=== PATIENT | male | born 1960 | race American Indian/Alaskan Native ===

== ENCOUNTER 2018-06-22 05:55 | Day surgery (SDC) | payer BC ==
[~2018-06-22 05:55] MED LIST: ANCEF/STERILE WATER 2 GM/20 ML 2 GM/20 ML SYRINGE IV NR; LACTATED RINGERS 1,000 ML IV SCH
[2018-06-22] MEDS ORDERED: ANCEF/STERILE WATER 2 GM/20 ML IV NR (06:24)
[2018-06-22] MEDS ORDERED: NACL BACTERIOSTATIC INFILTRATI ONE (06:44)
[2018-06-22] MEDS ORDERED: MARCAINE-EPI 0.5%-1:200,000 INFILTRATI ONE ×2 (06:47→08:42)
[2018-06-22] MEDS ORDERED: XYLOCAINE 1% 20 mL ONE (06:47)
[2018-06-22] MEDS ORDERED: FLAGYL 500 MG/100 ML 500 MG/100 ML BAG IV NR (07:00)
[2018-06-22] MEDS ORDERED: PEPCID IV NR (07:09)
[2018-06-22] MEDS ORDERED: XYLOCAINE MPF 2% ONE (07:26)
[2018-06-22] MEDS ORDERED: DILAUDID ONE (07:26)
[2018-06-22] MEDS ORDERED: ZEMURON IV ONE (07:26)
[2018-06-22] MEDS ORDERED: DIPRIVAN 10 MG/ML IV ONE ×2 (07:26→08:25)
[2018-06-22] MEDS ORDERED: NARCAN 0.4 MG/1 ML IV PRN (07:36)
[2018-06-22] MEDS ORDERED: DILAUDID IV PRN (07:36)
[2018-06-22] MEDS ORDERED: ZOFRAN IV PRN (07:36)
[2018-06-22] MEDS ORDERED: DEMEROL IV PRN (07:36)
[2018-06-22] MEDS ORDERED: SUBLIMAZE IV PRN (07:36)
[2018-06-22] MEDS ORDERED: VERSED IV NR (08:00)
--- NOTE | 2018-06-22 08:42 | Anesthesia Day of Surgery ---
Anesthesia Day of Surgery - Day of Surgery Patient Examined: Yes Patient H&P Reviewed: Yes Patient is NPO: Yes (799) Beta Blockers: No (n/a) Cardiac Clearance: No (n/a) Pulmonary Clearance: No (n/a)
--- NOTE | 2018-06-22 08:42 | Anesthesia Consultation ---
Anesthesia Consult and Med Hx Date of service: 06/22/18 - Airway Anesthetic Teeth Evaluation: Good ROM Head & Neck: Adequate Mental/Hyoid Distance: Adequate Mallampati Class: Class II Intubation Access Assessment: Probably Good - Pulmonary Exam CTA: Yes - Cardiac Exam Cardiac Exam: RRR - Pre-Operative Health Status ASA Pre-Surgery Classification: ASA3 Proposed Anesthetic Plan: General - Pulmonary Hx Smoking: No Hx Respiratory Symptoms: No Hx Sleep Apnea: Yes (RESOLVED WITH T&A SX) - Cardiovascular System Hx Hypertension: Yes (2018; took norvasc 5mg this morning) Hx Heart Attack/AMI: No Hx Cardia Arrhythmia: No - Central Nervous System Hx Neuromuscular Disorder: No Hx Psychiatric Problems: No - Endocrine Hx Renal Disease: No Hx Liver Disease: No Hx Insulin Dependent Diabetes: No Hx Non-Insulin Dependent Diabetes: No Hx Thyroid Disease: No - Other Systems Hx Alcohol Use: Yes (OCCA.) Hx Substance Use: No Hx Cancer: No Hx Obesity: Yes - Additional Comments Anesthesia Medical History Comments: No GAC, No FHAC
[2018-06-22] MEDS ORDERED: NACL 0.9% IR ONE ×2 (08:43→09:00)
[2018-06-22] MEDS ORDERED: XYLOCAINE 1% 20 mL INFILTRATI ONE (08:43)
[2018-06-22] MEDS ORDERED: ROBINUL ONE (10:15)
[2018-06-22] MEDS ORDERED: BLOXIVERZ ONE (10:15)
[2018-06-22] MEDS ORDERED: DECADRON ONE (10:15)
[2018-06-22] MEDS ORDERED: LACTATED RINGERS 1,000 ML ONE (10:20)
[2018-06-22] MEDS ORDERED: NORCO 5/325 PO PRN (10:25)
[2018-06-22] MEDS ORDERED: TYLENOL PO PRN (10:25)
--- NOTE | 2018-06-22 10:32 | Discharge Summary ---
Providers - Providers Date of Admission: 06/22/2018 Date of discharge: 06/22/18 Attending physician: GERMAIN GLASS Primary care physician: GILDA GIORDANO MD Hospitalization Condition: Good Procedures: Lap Right inguinal hernia repair Disposition: - TO HOME OR SELFCARE - Discharge Diagnoses (1) Right inguinal hernia Status: Chronic Core Measure Documentation - Palliative Care Palliative Care/ Comfort Measures: Not Applicable - Core Measures Any of the following diagnoses?: none Exam - Constitutional Vitals: Temp Pulse Resp BP Pulse Ox 98 F 55 L 18 178/102 97 06/22/18 06:39 06/22/18 06:39 06/22/18 06:39 06/22/18 06:39 06/22/18 06:39 General appearance: Present: no acute distress, well-nourished - EENT Eyes: Present: PERRL, EOM intact ENT: hearing intact, clear oral mucosa, dentition normal - Neck Neck: Present: supple, normal ROM - Respiratory Respiratory effort: normal Respiratory: bilateral: CTA - Cardiovascular Rhythm: regular - Extremities Extremities: no ischemia, pulses intact, pulses symmetrical, No edema, normal temperature, normal color, Full ROM Peripheral Pulses: within normal limits - Abdominal General gastrointestinal: Present: soft, non-tender, normal bowel sounds Male genitourinary: Present: normal, scrotal edema - Rectal Rectal Exam: deferred - Integumentary Integumentary: Present: clear, warm, dry - Musculoskeletal Musculoskeletal: strength equal bilaterally - Psychiatric Psychiatric: appropriate mood/affect Plan Activity: advance as tolerated (no heavy lifting) Weight Bearing Status: Full Weight Bearing Diet: regular Wound: keep clean and dry Special Instructions: no heavy lifting Follow up with: GILDA GIORDANO MD [Primary Care Provider] - 7 Days GERMAIN GLASS MD [Staff Physician] - 7 Days
[2018-06-22 12:23] VITALS: BP 122/67
--- NOTE | 2018-06-22 13:05 | Operative Report ---
PREOPERATIVE DIAGNOSIS: Incarcerated right inguinal hernia. POSTOPERATIVE DIAGNOSIS: Incarcerated right inguinal hernia with incarcerated omentum. PROCEDURE: Laparoscopic transabdominal preperitoneal approach to reduce and to repair the right inguinal hernia. SURGEON: Arie Adam MD EGG SORTER: Pankaj Velasco. ANESTHESIA: General. OPERATIVE TECHNIQUE: The patient was placed on the operating table in the dorsal supine position and following satisfactory induction of general anesthesia, the abdomen was prepped using Hibiclens solution and draped in a sterile fashion. Then using a sharp skin knife, skin incision was made at the umbilicus. Veress needle was placed with insufflation of CO2 and after adequate insufflation of CO2 was accomplished inside the abdominal cavity, a 10 mm trocar was then placed into the umbilicus. Two of the 5 mm trocars were placed along the patient's left hand side to approach the right defect. We made several attempts to reduce the hernia while the patient was asleep and relaxed and we could not reduce the hernia as it was incarcerated. We then took down the peritoneum using the LigaSure device and the incarcerated contents were gently teased over a period of round about 30 minutes to get the entire contents out with graspers and bleeding being controlled by the LigaSure. After the omental contents were reduced, we then dissected behind the hernia sac and pulled the hernia sac out of the defect. The spermatic cord and the testicular vessels were identified and these were preserved as the sac was dissected off of the structures. The patient developed an enormous amount of scrotal air as the defect left behind allowed air to transgress into the scrotal cavity. We therefore placed a right-sided mesh over the defect and secured it into place with the tacking device and then the peritoneum of the sac that was taken out of the defect was used to cover the mesh with the tacking device. The abdominal cavity was then desufflated and then the scrotal sac was desufflated. However, it was felt that this patient had a very, very large incarcerated hernia and therefore it was explained to him prior to surgery that he would more than likely, 90% of the time, develop a seroma that would have to be drained in the office. I did not feel that a drain could be used at this particular point in time because of the possible contamination of the mesh. The fascial defect at the umbilicus was closed using interrupted simple suture of #1 PDS and the skin was closed at all sites using interrupted subdermal sutures of 4-0 Monocryl. Steri-Strips were applied to the wound. The patient tolerated the procedure well and was sent around to the recovery room in satisfactory condition. JOB# [id number] DORINA/ALEXI
--- NOTE | 2018-06-22 13:45 | Post Anesthesia Evaluation ---
- Post Anesthesia Evaluation Patient Participated: Yes Airway Patent: Yes Stable Respiratory Function: Yes Nausea/Vomiting: No Temp > 96.8F: Yes Pain Manageable: Yes Adequeate Hydration: Yes Anesthesia Complications: No
== END 2018-06-22 05:56 | disposition home or self-care (01) ==
LOC: OR 05:55
PROVIDERS: ATTEND Specialist
DX: K40.30 Unilateral inguinal hernia, with obstruction, without gangrene, not specified as recurrent (principal); I10 Essential (primary) hypertension; G47.30 Sleep apnea, unspecified; E66.9 Obesity, unspecified; Z68.29 Body mass index [BMI] 29.0-29.9, adult; Z72.89 Other problems related to lifestyle; Z79.899 Other long term (current) drug therapy; Z88.6 Allergy status to analgesic agent; Z98.890 Other specified postprocedural states
CPT/HCPCS: 49650; A4217; C1726; C1781; J0690; J1100; J1170; J2250; J2704; J2710; J7120